=== PATIENT | female | born 1990 | race Caucasian/White ===

== ENCOUNTER 2019-02-28 18:57 | Emergency (ER) | payer MEDICAID ==
[~2019-02-28] VITALS: Ht 157.5 cm; Wt 63.5 kg
[2019-02-28 18:58] VITALS: BP 133/82
[2019-02-28 19:46] LABS: BASOPHILS % (AUTO) 0.2 % (0.0-2.0); EOSINOPHILS # (AUTO) 0.2 K/uL (0-0.4); EOSINOPHILS % (AUTO) 1.5 % (0.0-4.0); HEMOGLOBIN 13.6 g/dL (12.0-16.0); LYMPHOCYTES # (AUTO) 2.2 K/uL (2.5-16.5); LYMPHOCYTES % (AUTO) 15.8 % (20.5-51.1); MEAN CORPUSCULAR HEMOGLOBIN 31 pg (27-31); MEAN CORPUSCULAR HGB CONC 33 g/dL (33-37); MEAN CORPUSCULAR VOLUME 92.3 fL (80-94); MONOCYTES # (AUTO) 0.9 K/uL (0.8-1.0); MONOCYTES % (AUTO) 6.8 % (1.7-9.3); NEUTROPHILS # (AUTO) 10.5 K/uL (1.8-7.7); NEUTROPHILS % (AUTO) 75.7 % (42.2-75.2); PLATELET COUNT (AUTO) 282 K/uL (140-450); RED BLOOD CELL COUNT(AUTO) 4.44 MIL/uL (4.20-5.40); RED CELL DISTRIBUTION WIDTH 13.4 % (11.6-13.7); WHITE BLOOD COUNT (AUTO) 13.9 K/uL (4.8-10.8)
[2019-02-28 20:27] LABS: APPEARANCE,URINE CLEAR (CLEAR); BILIRUBIN,URINE NEGATIVE (NEGATIVE); BLOOD, URINE 3+ (NEGATIVE); COLOR,URINE YELLOW (YELLOW); LEUKOCYTE ESTERASE ,URINE TRACE (NEGATIVE); NITRITE, URINE NEGATIVE (NEGATIVE); UGLUCOSE NEGATIVE (NEGATIVE)
--- NOTE | 2019-02-28 20:30 | NUR ---
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 PT UNABLE TO GIVE EXACT AMOUNT OF BLEEDING. STATES BLEEDING HAS STOPPED. PT DENIES ANY ABDOMINAL PAIN/CRAMPING. NO CHEST PAIN/SOB. PT IS 10 WEEKS . COMPLIANT WITH MEDICATIONS. PT VSS. ERMD AWARE. WILL CONTINUE TO MONITOR.
[2019-02-28 20:35] LABS: WBC,URINE 0-5 /HPF (0-5)
[2019-02-28 21:15] VITALS: BP 130/67
--- NOTE | 2019-02-28 21:15 | NUR ---
PT DISCHARGED WITH PAPERWORK. NO MEDICATIONS PROVIDED. EDUCATED PT REGARDING D/C DIAGNOSIS AND INSTRUCTIONS. PT VERBALIZED UNDERSTANDING OF TEACHING. TOLD PT TO FOLLOW UP WITH OB DOCTOR AND WHEN TO RETURN TO ED. PT VSS. ALL QUESTIONS ANSWERED.
== END 2019-02-28 21:15 | disposition home or self-care (01) ==
LOC: MED 18:57
DX: O20.0 Threatened abortion (principal); Z3A.08 8 weeks gestation of pregnancy; Z90.49 Acquired absence of other specified parts of digestive tract
CPT/HCPCS: 36415; 76817; 81001; 81025; 84702; 85025; 86900; 86901; 99284; Q0092

== ENCOUNTER 2019-10-04 00:30 | Emergency (ER) | payer MEDICAID ==
[~2019-10-04] VITALS: Ht 157.5 cm; Wt 81.2 kg
[2019-10-04 00:34] VITALS: BP 127/81
--- NOTE | 2019-10-04 00:34 | NUR ---
Note undone in EDM - 10/04/19 at 0124 by [email or web address] 29 Y/O FEMALE 38.5 WEEKS PRESENTS TO ER WITH RASH/PAPULES AROUND BILATERAL LOWER ABDOMEN, AND BILATERAL UPPER THIGH. C/O OF PRURITIS, 0/10 PAIN. NO DISCHARGE/SECRETIONS FROM RASH. DENIES NAUSEA, VOMITING, DIARRHEA, SOB, COUGH, FEVER, CHILLS. VSS, R/R EQUAL, AND UNLABORED. SIDE RAIL X1, BED IN LOW POSITION, WILL CONTINUE TO MONITOR. NO PMH NKDA
--- NOTE | 2019-10-04 00:40 | NUR ---
PT AMBULATED TO BED 11 WITH STEADY GAIT.
--- NOTE | 2019-10-04 00:45 | NUR ---
29 Y/O FEMALE 38.5 WEEKS PRESENTS TO ER WITH RASH/PAPULES AROUND BILATERAL LOWER ABDOMEN, AND BILATERAL UPPER THIGH. C/O OF PRURITIS, 0/10 PAIN. NO DISCHARGE/SECRETIONS FROM RASH. DENIES NAUSEA, VOMITING, DIARRHEA, SOB, COUGH, FEVER, CHILLS. VSS, R/R EQUAL, AND UNLABORED. SIDE RAIL X1, BED IN LOW POSITION, WILL CONTINUE TO MONITOR. NO PMH NKDA
[2019-10-04 00:59] VITALS: BP 127/81
--- NOTE | 2019-10-04 00:59 | NUR ---
Patient discharged BY DR. BEST with v/s stable. Written and verbal after care instructions given and explained. Patient alert, oriented and verbalized understanding of instructions. Ambulatory with steady gait. All questions addressed prior to BY DR. BEST discharge. ID band removed. Patient advised to follow up with PMD. Rx of CALADRYL TOPICAL given. Patient educated on indication of medication including possible reaction and side effects. Opportunity to ask questions provided and answered.
== END 2019-10-04 00:59 | disposition home or self-care (01) ==
LOC: MED 00:30
DX: O99.719 Diseases of the skin and subcutaneous tissue complicating pregnancy, unspecified trimester (principal); R23.8 Other skin changes
CPT/HCPCS: 99282

== ENCOUNTER 2021-10-18 22:41 | Emergency (ER) | payer MEDICAID ==
[~2021-10-18] VITALS: Ht 157.5 cm; Wt 74.4 kg
--- NOTE | 2021-10-18 23:00 | NUR ---
called pt back, no response.
[2021-10-18 23:30] VITALS: BP 139/78
--- NOTE | 2021-10-19 01:55 | NUR ---
PATIENT BIB SELF FOR C/O L SIDED PELVIC PAIN X 1 MONTH. PT STATES PAIN HAS INCREASED IN THE PAST 2 DAYS. MEDHX: APENDECTOMY ARGENISA
[2021-10-19 02:20] LABS: BASOPHILS % (AUTO) 0.3 % (0.0-2.0); EOSINOPHILS # (AUTO) 0.2 K/uL (0-0.4); EOSINOPHILS % (AUTO) 1.9 % (0.0-4.0); HEMATOCRIT 40.2 % (36-48); HEMOGLOBIN 13.4 g/dL (12.0-16.0); LYMPHOCYTES % (AUTO) 28.2 % (20.5-51.1); MEAN CORPUSCULAR HEMOGLOBIN 30 pg (27-31); MEAN CORPUSCULAR HGB CONC 33 g/dL (33-37); MEAN CORPUSCULAR VOLUME 88.3 fL (80-94); MONOCYTES # (AUTO) 0.9 K/uL (0.8-1.0); MONOCYTES % (AUTO) 8.7 % (1.7-9.3); NEUTROPHILS # (AUTO) 6.6 K/uL (1.8-7.7); NEUTROPHILS % (AUTO) 60.9 % (42.2-75.2); PLATELET COUNT (AUTO) 311 K/uL (140-450); RED BLOOD CELL COUNT(AUTO) 4.55 MIL/uL (4.20-5.40); RED CELL DISTRIBUTION WIDTH 13.2 % (11.6-13.7); WHITE BLOOD COUNT (AUTO) 10.8 K/uL (4.8-10.8)
[2021-10-19 02:35] LABS: ALBUMIN 4.2 g/dL (3.4-5.0); CARBON DIOXIDE 29.2 mmol/L (21-32); CREATININE 0.7 mg/dL (0.6-1.3); POTASSIUM 4.2 mmol/L (3.5-5.1); TOTAL BILIRUBIN 0.2 mg/dL (0.0-1.0)
[2021-10-19] MEDS ORDERED: KETOROLAC 30 MG/ML VIAL IM ONE (03:00)
--- NOTE | 2021-10-19 04:16 | NUR ---
Dr. Contreras examining patient.
[2021-10-19] MEDS ORDERED: NAPR-54 PO (04:20)
[2021-10-19 04:27] VITALS: BP 139/78
--- NOTE | 2021-10-19 04:27 | NUR ---
Patient discharged with v/s stable. Written and verbal after care instructions given and explained. Patient verbalized understanding. Ambulatory with steady gait. All questions addressed prior to discharge. Advised to follow up with PMD.
== END 2021-10-19 04:27 | disposition home or self-care (01) ==
LOC: MED 22:41
DX: R10.2 Pelvic and perineal pain (principal)
CPT/HCPCS: 36415; 76856; 80053; 81002; 81025; 85025; 96372; 99283; J1885; Q0092